=== PATIENT | male | born 1950 | race Caucasian/White ===

== ENCOUNTER 2017-11-27 19:32 | Emergency (ER) | payer MEDICARE, OTHER ==
[2017-11-27] MEDS ORDERED: Bacitracin Oint 1 GM U/D Packet TOP ONE (20:03)
--- NOTE | 2017-11-27 20:19 | EDM.PDOC ---
ED HPI GENERAL MEDICAL PROBLEM - General Chief Complaint: Laceration Stated Complaint: FISH HOOK Time Seen by Provider: 11/27/17 20:04 Source of Information: Reports: Patient, RN Notes Reviewed History Limitations: Reports: No Limitations - History of Present Illness INITIAL COMMENTS - FREE TEXT/NARRATIVE: 66-year-old gentleman presents emergency department a complaint of fishhook in his right middle finger, this happened earlier today he has no functional complaints that is at the distal aspect - Related Data Allergies Allergy/AdvReac Type Severity Reaction Status Date / Time Penicillins Allergy Cannot Verified 11/27/17 19:57 Remember Home Meds: Home Meds Lisinopril 11/27/17 [History] Past Medical History Neurological History: Reports: Other (See Below) Other Neuro History: meningitis - Past Surgical History HEENT Surgical History: Reports: Tonsillectomy Male Surgical History: Reports: Vasectomy Social & Family History - Tobacco Use Smoking Status *Q: Never Smoker ED ROS GENERAL - Review of Systems Review Of Systems: See Below Constitutional: Reports: No Symptoms Skin: Reports: Wound Neurological: Reports: No Symptoms ED EXAM, SKIN/RASH Exam: See Below Text/Narrative:: Examination of the right hand there is a 3 pronged fishhook located in the distal tip of digit #3 right hand he has full range of motion all digits sensation is intact no functional complaints radial pulse is +2 Exam Limited By: No Limitations General Appearance: Alert, WD/WN, No Apparent Distress ED SKIN PROCEDURES - Foreign Body Removal Indication:: [place] right digit #3 distal tip hand, after adequate anesthesia with a digital block an 18-gauge needle was used to cover the isaac of the hook and back it out Consent Obtained:: Patient Performing Doctor:: OfficerSevero Anesthesia Type: Other (see below) (Digital) Complications:: No Course - Vital Signs Last Recorded V/S: Last Vital Signs Temp 97.6 F 11/27/17 20:01 Pulse 86 11/27/17 20:01 Resp 16 11/27/17 20:01 BP 168/76 H 11/27/17 20:01 Pulse Ox 93 L 11/27/17 20:01 - Orders/Labs/Meds Meds: Medications Discontinued Medications Generic Name Dose Route Start Last Admin Trade Name Freq PRN Reason Stop Dose Admin Bacitracin 1 dose 11/27/17 20:03 11/27/17 20:14 Bacitracin Oint 1 Gm TOP 11/27/17 20:04 1 dose ONETIME ONE Administration Lidocaine HCl 5 ml 11/27/17 20:03 11/27/17 20:14 Xylocaine-Mpf 1% INJECT 11/27/17 20:04 5 ml ONETIME ONE Administration Departure - Departure Time of Disposition: 20:39 Disposition: Home, Self-Care 01 Condition: Good Clinical Impression: Fish hook injury of right middle finger Qualifiers: Encounter type: initial encounter Qualified Code(s): S69.91XA - Unspecified injury of right wrist, hand and finger(s), initial encounter - Discharge Information Referrals: PCP,None [Primary Care Provider] - Forms: ED Department Discharge Additional Instructions: Follow-up with primary care as needed, use Tylenol or Motrin for pain control keep wound clean - Assessment/Plan Plan: Assessment Acuity = acute Site and laterality = fishhook digit #3 right hand Etiology = Rapila Manifestations = none Location of injury = Home Lab values = none Plan Tetanus was updated today, follow-up with primary care as needed This note was dictated using NoWait voice recognition software please call with any questions on syntax or grammar.
[2017-11-27] MEDS ORDERED: Diphtheria,Pertussis(Acell),Tetanus Vaccine 0.5 ML SDV IM ONE (20:39)
== END 2017-11-27 20:49 | disposition home or self-care (01) ==
LOC: JP.ED 19:32
DX: S60.452A Superficial foreign body of right middle finger, initial encounter (principal); Z88.0 Allergy status to penicillin; W45.8XXA Other foreign body or object entering through skin, initial encounter; Z23 Encounter for immunization
CPT/HCPCS: 64450; 90471; 90715; 99283-25